=== PATIENT | female | born 1980 | race Caucasian/White ===

== ENCOUNTER 2017-04-28 12:54 | Emergency (ER) | payer BC ==
[2017-04-28 13:00] VITALS: BP 125/85
--- NOTE | 2017-04-28 13:46 | PHYS DOC ---
General Chief Complaint: EYE PROBLEMS Stated Complaint: EYE PROBLEM Time Seen by MD: 13:42 Source: patient Exam Limitations: no limitations Problems: History of Present Illness Initial Comments Patient is a 36-year-old female complaining of allergic reaction. Patient states that she was cleaning in a telly environment with chemicals yesterday and felt eyelid irritation, she awoke with eyelid swelling left greater than right. She states this is happened 3-4 times in the past each time she's been treated with steroids and antihistamines and symptoms has resolved. She refuses irrigation in the emergency department and wants us to treat her and discharge her she will return if needed. She denies any actual eye pain or drainage no itching or burning no foreign body sensation and the patient does not wear contact lenses. Timing/Duration: gradual Severity: moderate Location: eye (R), eye (L) Prearrival Treatment: over the counter meds Modifying Factors: improves with other Associated Symptoms: other Allergies: Coded Allergies: crab (Verified Allergy, Unknown, 04/28/17) Past Medical History Medical History: no pertinent history (has had similar symptoms in the past treated as allergies and resolved) Surgical History: noncontributory Social History Smoker: non-smoker Alcohol: none Drugs: none Constitutional: denies chills, denies diaphoresis, denies fever, denies malaise Eyes: see HPI, denies blindness, denies blurred vision, denies drainage, denies decreased acuity, denies foreign body sensation, denies photophobia, denies contact lenses Ears: denies dizziness, denies pain Nose: denies clots, denies congestion Throat: denies swelling, denies discharge, denies neck stiffness, denies painful swallowing Respiratory: denies cough, denies shortness of breath Cardiovascular: denies chest pain, denies palpitations Physical Exam General Appearance: WD/WN, no apparent distress Eyes: bilateral eye PERRL, bilateral eye EOMI, bilateral eye lid inflammation ( mild redness consistent with allergy no periorbital swelling) Nose: normal inspection Mouth/Throat: normal mouth inspection, pharynx normal Neck: non-tender, supple Cardiovascular/Respiratory: normal peripheral pulses, normal breath sounds, no respiratory distress Neurologic/Psychiatric: location director II-XII nml as tested, no motor/sensory deficits, alert, normal mood/affect, oriented x 3 Orders, Labs, Meds Per patient's request we will treat as allergy she agrees to return to the department if needed. I discussed signs and symptoms to monitor as well as indications for urgent return to the department. Her questions were answered to her satisfaction and she expressed agreement and understanding of treatment plan see departure instructions. Departure Time of Disposition: 13:44 Disposition: 01 HOME, SELF-CARE Diagnosis: allergic reaction Condition: GOOD Patient Instructions: Allergy Tests Additional Instructions: Please review the patient education materials given by ED staff. Avoid contact with dust and similar cleaning products moving forward. As discussed you have refused eye irrigation. You have requested medications which have worked for these symptoms in the past and to be discharged. No contact lenses. [id number] Pepcid 20 mg twice daily, Benadryl 25-50 mg every 6 hours while taking prednisone. Prescription: Prednisone Follow-up with assistant oceanographer in 2-3 days for recheck. Return to ED with new or changing symptoms. FAWN WEST DO Apr 28, 2017 13:45
[2017-04-28] MEDS ORDERED: PRED20TA PO (13:47)
[2017-04-28] MEDS ORDERED: FAMOTIDINE 20 MG TABLET PO ONE (14:30)
[2017-04-28] MEDS ORDERED: methylPREDNISolone SOD SUCC PF 125 MG/2 ML VIAL. IM ONE (14:30)
== END 2017-04-28 14:00 | disposition home or self-care (01) ==
LOC: ER 12:54
DX: T78.49XA Other allergy, initial encounter (principal); Z91.013 Allergy to seafood; X58.XXXA Exposure to other specified factors, initial encounter
CPT/HCPCS: 96372; 99283; J2930

== ENCOUNTER 2017-05-13 01:45 | Emergency (ER) | payer BC ==
[~2017-05-13] VITALS: Ht 162.6 cm; Wt 62.6 kg
[2017-05-13 01:45] VITALS: BP 142/81
[~2017-05-13 01:45] MED LIST: PRED20TA PO
--- NOTE | 2017-05-13 02:04 | PHYS DOC ---
Past History Past Medical History: No Pertinent History Past Surgical History: No Surgical History Alcohol Use: Occasionally Drug Use: None Adult General Chief Complaint Chief Complaint: CONSTIPATION HPI HPI Patient is a female who presents with complaints of constipation since . She has engage in recent dietary changes. Patient denies any vomiting , fevers, chills, rashes, abdominal pain. She feels some pain in the rectal area when she is trying to strain Review of Systems Review of Systems Constitutional: Denies fever or chills [] Eyes: Denies change in visual acuity, redness, or eye pain [] HENT: Denies nasal congestion or sore throat [] Respiratory: Denies cough or shortness of breath [] Cardiovascular: No additional information not addressed in HPI [] GI: Denies abdominal pain, nausea, vomiting, bloody stools or diarrhea [] : Denies dysuria or hematuria [] Musculoskeletal: Denies back pain or joint pain [] Integument: Denies rash or skin lesions [] Neurologic: Denies headache, focal weakness or sensory changes [] Endocrine: Denies polyuria or polydipsia [] All other systems were reviewed and found to be within normal limits, except as documented in this note. Current Medications Current Medications Current Medications Medications (Trade) Dose Ordered Sig/Tasneem Start Time Stop Time Status Last Admin Dose Admin Magnesium Citrate (Citroma) 296 ml 1X ONCE 05/13/17 02:00 05/13/17 02:01 UNV Allergies Allergies Allergies Coded Allergies Type Severity Reaction Last Updated Verified crab Allergy Unknown 04/28/17 Yes Physical Exam Physical Exam Constitutional: Well developed, well nourished, no acute distress, non-toxic appearance. [] HENT: Normocephalic, atraumatic, Eyes: EOMI, conjunctiva normal, no discharge. [] Neck: Normal range of motion, trachea midline Cardiovascular: No perfusion Lungs & Thorax: no tachypnea Abdomen: soft, no tenderness, no masses, no pulsatile masses. [] Skin: Warm, dry, no erythema, no rash. [] Back: Normal range of motion Extremities: No tenderness, ROM intact,. [] Neurologic: Alert and oriented X 3, normal motor function, and relates in the ED with normal gait and without assistance, no focal deficits noted. [] Psychologic: Affect normal, judgement normal, mood normal. [] EKG EKG [] Radiology/Procedures Radiology/Procedures [] Course & Med Decision Making Course & Med Decision Making Pertinent Labs and Imaging studies reviewed. (See chart for details) Patient declines rectal exam for possible disimpaction need. [] Dragon Disclaimer Dragon Disclaimer This electronic medical record was generated, in whole or in part, using a voice recognition dictation system. Departure Departure: Impression: Primary Impression: Constipation Disposition: HOME, SELF-CARE Condition: STABLE Referrals: NIC HARDY (PCP) Please follow with your doctor in 2 days for recheck and reevaluation if needed Patient Instructions: Constipation, Adult Scripts Magnesium Citrate (MAGNESIUM CITRATE) 296 Ml Solution 296 ML PO ONCE, #296 ML Prov: Zeinab GLOVER MD 05/13/17 Zeinab GLOVER MD May 13, 2017 02:04
[2017-05-13] MEDS ORDERED: MAGN296S9 PO (02:08)
[2017-05-13] MEDS ORDERED: MAGNESIUM CITRATE 296 ML SOLUTION. PO ONE (02:15)
== END 2017-05-13 02:09 | disposition home or self-care (01) ==
LOC: ER 01:45
DX: K59.00 Constipation, unspecified (principal); K62.89 Other specified diseases of anus and rectum; Z91.013 Allergy to seafood
CPT/HCPCS: 99282